=== PATIENT | female | born 1980 | race Caucasian/White ===

== ENCOUNTER 2018-05-30 09:28 | Inpatient (IN) | payer BC ==
--- NOTE | 2018-05-30 09:45 | Emergency Department Record ---
History of Present Illness - General Chief Complaint: Abdominal Pain Stated Complaint: ABD PAIN Time Seen by Provider: 05/30/18 09:34 Source: Patient - History of Present Illness Initial Comments: the patient states that she developed upper abdominal pain, left worse than right, yesterday. It worsened to 9/10 in the middle of the night last night. Over the two days she has had nausea, vomiting times 7, and diarrhea times 2. She denies seeing blood or black in her vomit or stools. She is sweaty and chilled but has not had a fever. Her appendix has been surgically removed. She is [id number] [birth year]. She takes ultram and norco daily for her thoracic back spurs, scoliosis and arthritis. She also drinks more 3-6 beers daily. - Related Data Home Medications Medication Instructions Recorded Confirmed Last Taken Citalopram Hydrobromide 40 mg PO DAILY 05/30/18 05/30/18 Unknown [Citalopram HBr] Hydrocodone/Acetaminophen 1 each PO ASDIR 05/30/18 05/30/18 05/30/18 [Hydrocodone-Acetamin 5-325 mg] Metoprolol Succinate [Toprol Xl] 25 mg PO DAILY 05/30/18 05/30/18 Unknown Tramadol HCl 50 mg PO DAILY 05/30/18 05/30/18 Unknown Allergies Allergy/AdvReac Type Severity Reaction Status Date / Time NSAIDS (Non-Steroidal Allergy RASH Verified 05/30/18 09:42 Anti-Inflamma Review of Systems Reviewed: No additional complaints except as noted below Constitutional: Reports: As per HPI. Denies: Chills, Fever, Malaise, Night sweats, Weakness, Weight change Eyes: Reports: As per HPI. Denies: Eye discharge, Eye pain, Photophobia, Vision change ENT: Reports: As per HPI. Denies: Congestion, Dental pain, Ear pain, Epistaxis , Hearing loss, Throat pain Respiratory: Reports: As per HPI. Denies: Cough, Dyspnea, Hemoptysis, Stridor, Wheezes Cardiovascular: Reports: As per HPI. Denies: Arrhythmia, Chest pain, Dyspnea on exertion, Edema, Murmurs, Orthopnea, Palpitations, Paroxysmal nocturnal dyspnea, Rheumatic Fever, Syncope Endocrine: Reports: As per HPI. Denies: Fatigue, Heat or cold intolerance, Polydipsia, Polyuria Gastrointestinal: Reports: As per HPI. Denies: Abdominal pain, Constipation, Diarrhea, Hematemesis, Hematochezia, Melena, Nausea, Vomiting Genitourinary: Reports: As per HPI. Denies: Abnormal menses, Discharge, Dyspareunia, Dysuria, Frequency, Hematuria, Incontinence, Retention, Urgency Musculoskeletal: Reports: As per HPI. Denies: Arthralgia, Back pain, Gout, Joint swelling, Myalgia, Neck pain Skin: Reports: As per HPI. Denies: Bruising, Change in color, Change in hair/ nails, Lesions, Pruritus, Rash Neurological: Reports: As per HPI. Denies: Abnormal gait, Confusion, Headache, Numbness, Paresthesias, Seizure, Tingling, Tremors, Vertigo, Weakness Psychiatric: Reports: As per HPI. Denies: Anxiety, Auditory hallucinations, Depression, Homicidal thoughts, Suicidal thoughts, Visual hallucinations Hematological/Lymphatic: Reports: As per HPI. 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 negative: Conjunctival injection, Nystagmus, Scleral icterus Pupils: Normal accommodation - ENT ENT exam: Normal exam, Mucous membranes moist, Normal external ear exam, Normal orophraynx, TM's normal bilaterally Ear exam: Normal external inspection. negative: External canal tenderness Nasal Exam: Normal inspection. negative: Discharge, Sinus tenderness Mouth exam: Normal external inspection, Tongue normal Teeth exam: Normal inspection. negative: Dental caries Throat exam: Normal inspection. negative: Tonsillar erythema, Tonsillar exudate - Neck Neck exam: Normal inspection, Full ROM. negative: Lymphadenopathy, Meningismus , Tenderness - Respiratory Respiratory exam: Normal lung sounds bilaterally. negative: Respiratory distress - Cardiovascular Cardiovascular Exam: Normal rhythm, Normal heart sounds, Tachycardia - GI/Abdominal GI/Abdominal exam: Soft, Normal bowel sounds, Tenderness (maximally tender 9/10 LUQ and epigastrum; also 6/10 RUQ tender. ) - Rectal Rectal exam: Deferred - exam: Deferred - Extremities Extremities exam: Normal inspection, Full ROM, Normal capillary refill. negative: Calf tenderness, Pedal edema, Tenderness - Back Back exam: Reports: Normal inspection, CVA tenderness (L), Full ROM. Denies: Muscle spasm, Rash noted, Tenderness - Neurological Neurological exam: Alert, CN II-XII intact, Normal gait, Oriented X3, Reflexes normal, Other (tearful). negative: Motor sensory deficit - Psychiatric Psychiatric exam: Normal affect, Normal mood - Skin Skin exam: Dry, Intact, Normal color, Warm Course - Reevaluation(s) Reevaluation #1: Patient states her nausea is resolved but her pain has not improved. She has a low K for which she is getting 20 Klor orally and 20 in her second IV of NS. CT abdomen ordered. 05/30/18 10:40 Reevaluation #2: Diaphoresis has resolved, pain has improved but not resolved after dilaudid. Drinking contrast for CT scan. 05/30/18 11:12 Reevaluation #3: results discussed with patient. All questions answered. 05/30/18 12:55 05/30/18 13:33 and patient agree for her admission. Discussed with Mellisa Cage N.P. who agrees with Observation for hydration, pain control, and social science instructor consult. Medical Decision Making - Management Options MDM Management: Additional Work-up Planned (e.g. ADM/Transfer/OP Study) ( Admission for acute pancreatitis) - Data Complexity MDM Data: Labs Ordered and/or Reviewed (Lipase 769; bili 1.5, AST 144, ALT 110) , X-Ray Ordered and/or Reviewed (Contrast Abd/Pelvis CT: Findings consistent with acute pancreatitis with fluid in the perirenal space and lesser sack; fatty infiltrates in the the liver and thickened duodenum likely secondary to pancreatitis. Per radiologist.) - Lab Data Result diagrams: 05/30/18 09:50 05/30/18 09:50 Disposition Disposition: Admit Clinical Impression: Elevated liver enzymes Acute pancreatitis Qualifiers: Pancreatitis type: alcohol induced Acute pancreatitis complication: no infection or necrosis Qualified Code(s): K85.20 - Alcohol induced acute pancreatitis without necrosis or infection Disposition: Still a Patient at [facility] Decision to Admit: Admit from ER Decision to Admit Date: 05/30/18 Decision to Admit Time: 13:02 Accepting Physician: Dr. Kumari/Mellisa Love Time Discussed w/Accepting Physician: 13:02 Condition: (1) Good Forms: Patient Portal Access Quality - Quality Measures Quality Measures: N/A - Blood Pressure Screening Does Patient Have Any of the Following: No Blood Pressure Classification: Hypertensive Reading Systolic Measurement: 138 Diastolic Measurement: 103 Screening for High Blood Pressure: < Pre-Hypertensive BP, F/U Documented > [ [id number]] Pre-Hypertensive Follow-up Interventions: Follow-up with rescreen every year.
[2018-05-30] MEDS ORDERED: ONDANSETRON HCL IV 4 MG/2 ML VIAL IV ONE (09:56)
[2018-05-30] MEDS ORDERED: 0.9 % SODIUM CHLORIDE 1,000 ML BAG IV ONE (09:56)
[2018-05-30] MEDS ORDERED: FAMOTIDINE IV 20 MG/2 ML VIAL IVP ONE (09:57)
[2018-05-30] MEDS ORDERED: HYOSCYAMINE SULFATE ODT 0.125 MG TAB.SUBL SL ONE (10:03)
[2018-05-30 10:06] LABS: BASO % 0.2 % (0-6); EOS % 0.2 % (0-6); GRAN % 78.6 % (47-80); HEMATOCRIT 42.2 % (35.0-47.0); LYMPH % 17.4 % (16-45); MEAN CORPUSCULAR HEMOGLOBIN 34.5 pg (27-33); MEAN CORPUSCULAR HGB CONC 35.5 g/dl (32-36); MEAN PLATELET VOLUME 9.7 fl (7.4-10.4); MONO % 3.6 % (0-9); PLATELET COUNT 174 K/uL (130-400); RED BLOOD COUNT 4.35 M/uL (3.80-5.40); RED CELL DISTRIBUTION WIDTH 11.6 % (11.5-14.5); URINE APPEARANCE CLEAR; URINE BILIRUBIN NEGATIVE (NEGATIVE); URINE BLOOD NEGATIVE (NEGATIVE); URINE COLOR ORANGE; URINE GLUCOSE (UA) NEGATIVE (NEGATIVE); URINE KETONE 15 mg/dL (NEGATIVE); URINE LEUKOCYTE ESTERASE NEGATIVE (NEGATIVE); URINE NITRITE POSITIVE (NEGATIVE); URINE PROTEIN NEGATIVE (NEGATIVE); URINE UROBILINOGEN 0.2 E.U./dL (0.20 - 1.00); WHITE BLOOD COUNT W/O DIFF 9.2 K/uL (4.2-12.2)
[2018-05-30 10:14] LABS: BLOOD UREA NITROGEN 16 mg/dL (6-20); CREATININE 0.6 mg/dL (0.5-0.9); EST GLOMERULAR FILTRATION RATE > 60 mL/min
[2018-05-30 10:15] LABS: TOTAL PROTEIN 7.1 g/dL (6.6-8.7)
[2018-05-30 10:17] LABS: GLUCOSE,RANDOM 139 mg/dL (74-109)
[2018-05-30 10:20] LABS: ALB/GLOB RATIO 1.4 (1.1-1.8); ALBUMIN 4.2 g/dL (4.0-5.0); ALKALINE PHOSPHATASE 93 U/L (35-104); ALT/SGPT 110 U/L (<33); AST/SGOT 144 U/L (10.0-35.0)
[2018-05-30 10:23] LABS: URINE RBC 0 - 2 (NONE SEEN); URINE WBC 0 - 2 (0-2/hpf)
[2018-05-30 10:24] LABS: URINE AMORPHOUS SEDIMENT 2+
[2018-05-30 10:28] LABS: HCG,QUALITATIVE URINE NEGATIVE (NEGATIVE)
[2018-05-30] MEDS ORDERED: POTASSIUM CHLORIDE 20 MEQ TABLET PO ONE (10:36)
[2018-05-30] MEDS ORDERED: POTASSIUM CHL 20MEQ IN 1L NS 20 MEQ in 0.9 % SODIUM CHLORIDE 1000ML 1 BAG IV ONE ×2 (10:37)
[2018-05-30] MEDS ORDERED: LORAZEPAM 2 MG/ML VIAL IV ONE (10:39)
[2018-05-30] MEDS ORDERED: HYDROMORPHONE HCL 2 MG/ML VIAL IVP ONE (10:40)
[2018-05-30 10:44] LABS: LIPASE 769 U/L (13-60)
[2018-05-30] MEDS ORDERED: POTASSIUM CHLORIDE/D5-0.9%NACL 20 MEQ/1,000 ML BAG IV ONE (14:43)
[2018-05-30] MEDS ORDERED: 0.9 % SODIUM CHLORIDE 1000ML 1,000 ML IV ONE (14:43)
[2018-05-30] MEDS ORDERED: ONDANSETRON HCL IV 4 MG/2 ML VIAL IVP PRN (14:43)
[2018-05-30] MEDS ORDERED: MORPHINE SULFATE 10 MG/ML VIAL IVP PRN (15:27)
[2018-05-30] MEDS ORDERED: LORAZEPAM 2 MG/ML VIAL IV PRN ×4 (15:37→23:01)
[2018-05-30] MEDS: METOPROLOL 25 MG PO SCH ×2 (18:05→22:02)
[2018-05-30] MEDS: MORPHINE SULFATE 10 MG/ML VIAL IVP SCH ×2 (18:08→20:26)
[2018-05-30] MEDS ORDERED: POTASSIUM CHL 20MEQ IN 1L NS 20 MEQ/1,000 ML BAG IV SCH (19:00)
[2018-05-30 20:05] LABS: ALB/GLOB RATIO 1.4 (1.1-1.8); ALBUMIN 3.7 g/dL (4.0-5.0); ALKALINE PHOSPHATASE 77 U/L (35-104); ALT/SGPT 83 U/L (<33); AST/SGOT 97 U/L (10.0-35.0); BLOOD UREA NITROGEN 11 mg/dL (6-20); CREATININE 0.6 mg/dL (0.5-0.9); EST GLOMERULAR FILTRATION RATE > 60 mL/min; GLUCOSE,RANDOM 117 mg/dL (74-109); TOTAL PROTEIN 6.4 g/dL (6.6-8.7)
[2018-05-30] MEDS ORDERED: PATIENT OWN MED: CITALOPRAM 40 MG PO SCH (22:00)
[2018-05-30] MEDS: 0.9 % SODIUM CHLORIDE 1000ML 1,000 ML IV SCH (22:54)
[2018-05-31] MEDS ORDERED: DIAZEPAM (VALIUM) 5MG/ML **10ML VIAL IVP ONE (00:41)
[2018-05-31] MEDS ORDERED: HALOPERIDOL LACTATE 5 MG/ML VIAL IM ONE (01:40)
[2018-05-31 06:46] LABS: HEMOGLOBIN 12.6 gm/dl (11.6-16.0); MEAN CELL VOLUME 98.7 fl (81-97); MEAN CORPUSCULAR HEMOGLOBIN 33.6 pg (27-33); MEAN CORPUSCULAR HGB CONC 34.1 g/dl (32-36); MEAN PLATELET VOLUME 10.1 fl (7.4-10.4); PLATELET COUNT 118 K/uL (130-400); RED BLOOD COUNT 3.75 M/uL (3.80-5.40); RED CELL DISTRIBUTION WIDTH 11.8 % (11.5-14.5); WHITE BLOOD COUNT W/O DIFF 5.1 K/uL (4.2-12.2)
[2018-05-31 07:06] LABS: ALB/GLOB RATIO 1.3 (1.1-1.8); ALKALINE PHOSPHATASE 62 U/L (35-104); ALT/SGPT 57 U/L (<33); AST/SGOT 66 U/L (10.0-35.0); BLOOD UREA NITROGEN 11 mg/dL (6-20); CREATININE 0.5 mg/dL (0.5-0.9); EST GLOMERULAR FILTRATION RATE > 60 mL/min; GLUCOSE,RANDOM 95 mg/dL (74-109); TOTAL PROTEIN 5.3 g/dL (6.6-8.7)
[2018-05-31 07:16] LABS: PLATELET ESTIMATE NORMAL (NORMAL)
[2018-05-31] MEDS: 0.9 % SODIUM CHLORIDE 1000ML 1,000 ML IV SCH ×2 (07:33→17:17)
[2018-05-31] MEDS: MORPHINE SULFATE 10 MG/ML VIAL IVP PRN ×3 (07:47→13:36)
--- NOTE | 2018-05-31 09:56 | History & Physical ---
History of Present Illness - Date of Service Date of Service for History & Physical: 05/31/18 - History of Present Illness Admitting Diagnosis: Acute pancreatitis; elevated LFT's; alcohol abuse History of Present Illness: 38 year old female presents to ED for diffuse abdominal pain, nausea, vomiting, and diarrhea since Tuesday. Patient reports that the pain has been gradually worsening, and is now a 9/10. Patient denies any blood in her stool or emesis. Patient is unsure if she has had fevers, has been chilled and diaphoretic several times over the past few days. Reports progressive weakness as well. Denies shortness of breath, chest pain, dizziness, or syncope. Patient's past medical history includes thoracic back spurs, scoliosis, arthritis, depression, SVT, and appendectomy. Patient currently takes [place] 5/ 325mg TID, Ultram 50mg TID, Metoprolol, and Citalopram. Patient also reports drinking 3-6 beers daily for pain control. PCP: Basilio ED Course: VS: HR 98, BP 138/103, RR 18, Pulse ox 95% RA, afebrile K 3.0, received 20mEq K orally and 20mEq IVPB Bili 1.5, AST 144, ALT 110, Lipase 769 Dilaudid IVP for pain ABD CT: acute pancreatitis, fatty infiltrates in liver, no gallstones, no hepatic mass, nonspecific free fluid in pelvis, thickening of duodenum likely due to acute pancreatitis Tremorous, received 0.5mg Ativan IVP 2 05/31/18: Patient A&O x 4. Resting comfortably on bed, appears quite anxious at this time. Patient has been asking several times throughout the night when she is able to go. Patient has been placed on CIWA protocol and has been receiving several doses of benzodiazepines throughout the night. Patient became agitated, aggressive, confused, weak, and diaphoretic throughout the night. This morning this has resolved, patient continues to ask when she can leave. Continues to have some cloudy sensorium. Denies nausea at this time, will advance diet to clear liquids. Continue with NS @ 125ml/hr. Patient continues to have diffuse abdominal pain upon palpation, receiving Morphine IVP prn. Travel Screening - Travel/Exposure Within Last 30 Days Have you traveled within the last 30 days?: Yes Location Detail:: [place] - Travel/Exposure Within Last Year Have you traveled outside the [place] in the last year?: No - Additonal Travel Details Have you been exposed to anyone with a communicable illness?: No - Travel Symptoms Symptom Screening: Diarrhea, Vomiting Review of Systems Reviewed: No additional complaints except as noted below Constitutional: Reports: As per HPI, Chills. Denies: Fever, Malaise, Night sweats, Weakness, Weight change Eyes: Reports: As per HPI. Denies: Eye discharge, Eye pain, Photophobia, Vision change ENT: Reports: As per HPI. Denies: Congestion, Dental pain, Ear pain, Epistaxis , Hearing loss, Throat pain Respiratory: Reports: As per HPI. Denies: Cough, Dyspnea, Hemoptysis, Stridor, Wheezes Cardiovascular: Reports: As per HPI. Denies: Arrhythmia, Chest pain, Dyspnea on exertion, Edema, Murmurs, Orthopnea, Palpitations, Paroxysmal nocturnal dyspnea, Rheumatic Fever, Syncope Endocrine: Reports: As per HPI. Denies: Fatigue, Heat or cold intolerance, Polydipsia, Polyuria Gastrointestinal: Reports: As per HPI, Abdominal pain, Diarrhea, Nausea, Vomiting. Denies: Constipation, Hematemesis, Hematochezia, Melena Genitourinary: Reports: As per HPI. Denies: Abnormal menses, Discharge, Dyspareunia, Dysuria, Frequency, Hematuria, Incontinence, Retention, Urgency Musculoskeletal: Reports: As per HPI, Back pain. Denies: Arthralgia, Gout, Joint swelling, Myalgia, Neck pain Skin: Reports: As per HPI. Denies: Bruising, Change in color, Change in hair/ nails, Lesions, Pruritus, Rash Neurological: Reports: As per HPI, Weakness. Denies: Abnormal gait, Confusion, Headache, Numbness, Paresthesias, Seizure, Tingling, Tremors, Vertigo Psychiatric: Reports: As per HPI. Denies: Anxiety, Auditory hallucinations, Depression, Homicidal thoughts, Suicidal thoughts, Visual hallucinations Hematological/Lymphatic: Reports: As per HPI. 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: Reports: week(s) - RESPIRATORY Hx Respiratory Disorders: No - CARDIOVASCULAR Hx Cardio Disorders: Yes Hx Irregular Heartbeat: Yes (SVT) - NEURO Hx Neuro Disorders: No - GI Hx GI Disorders: No - Hx Genitourinary Disorders: No - ENDOCRINE Hx Endocrine Disorders: No - MUSCULOSKELETAL Hx Musculoskeletal Disorders: Yes Hx Arthritis: Yes Comment:: scoliosis, bone spurs - PSYCH Hx Psych Problems: Yes Hx Depression: Yes - HEMATOLOGY/ONCOLOGY Hx Hematology/Oncology Disorders: No Family Medical History Any Significant Family History?: Yes Hx Cancer: Father, Grandparents H&P Meds/Allergies - Allergies Allergies: Allergies Allergy/AdvReac Type Severity Reaction Status Date / Time NSAIDS (Non-Steroidal Allergy RASH Verified 05/30/18 09:42 Anti-Inflamma - Home Medications Home Medications Medication Instructions Recorded Confirmed Last Taken Citalopram Hydrobromide 40 mg PO QHS 05/30/18 05/31/18 Unknown [Citalopram HBr] Hydrocodone/Acetaminophen 1 each PO Q4H PRN 05/30/18 05/31/18 05/30/18 [Hydrocodone-Acetamin 5-325 mg] Metoprolol Succinate [Toprol Xl] 25 mg PO QHS 05/30/18 05/31/18 Unknown Tramadol HCl 50 mg PO BID PRN 05/30/18 05/31/18 Unknown - Active Medications Active Medications: Current Medications Sodium Chloride () 1,000 mls @ 125 mls/hr IV .Q8H [facility] Last Admin: 05/31/18 07:33 Dose: 125 mls/hr Lorazepam (Ativan) 1 mg IV Q2HR PRN PRN Reason: ALCOHOL WITHDRAWAL Lorazepam (Ativan) 2 mg IV Q2HR PRN PRN Reason: ALCOHOL WITHDRAWAL Morphine Sulfate (Morphine Sulfate) 4 mg IVP Q2H PRN PRN Reason: ABDOMINAL PAIN Last Admin: 05/31/18 07:47 Dose: 4 mg Ondansetron HCl (Zofran) 4 mg IVP Q4H PRN PRN Reason: NAUSEA Patient Own Med: (Citalopram 40 Mg) 1 each PO QHS [facility] Last Admin: 05/30/18 22:56 Dose: 1 each Patient Own Med: (Metoprolol Xl 25 Mg) 1 each PO QHS [facility] Last Admin: 05/30/18 22:02 Dose: Not Given Physical Exam - Vital Signs Vital Signs: Vital Signs - Last 24 Hrs Temp Pulse Pulse Resp BP BP Pulse Ox 05/31/18 07:58 80 16 05/31/18 06:00 98.1 F 80 16 112/46 100 05/30/18 22:00 100.6 F H 119 H 17 125/75 99 05/30/18 19:30 110 H 20 05/30/18 14:43 97.7 F 97 H 18 131/92 99 05/30/18 11:42 89 20 114/81 100 05/30/18 09:36 98.0 F 95 H 18 138/103 100 - General General Appearance: Alert, Oriented x3, Mild distress - Head Head exam: Normal inspection - Eye Eye exam: Normal appearance, PERRL, EOMI. negative: Conjunctival injection, Nystagmus, Scleral icterus Pupils: Normal accommodation - ENT ENT exam: Normal exam, Mucous membranes moist, Normal external ear exam, Normal orophraynx Ear exam: Normal external inspection. negative: External canal tenderness Nasal Exam: Normal inspection. negative: Discharge, Sinus tenderness Mouth exam: Normal external inspection, Tongue normal Teeth exam: Normal inspection. negative: Dental caries Throat exam: Normal inspection. negative: Tonsillar erythema, Tonsillar exudate - Neck Neck exam: Normal inspection, Full ROM. negative: Lymphadenopathy, Meningismus , Tenderness - Respiratory Respiratory exam: Normal lung sounds bilaterally. negative: Respiratory distress - Cardiovascular Cardiovascular Exam: Normal rhythm, Normal heart sounds, Tachycardia Peripheral Pulses: 2+: Radial (R), Radial (L), Dorsalis Pedis (R), Dorsalis Pedis (L) - GI/Abdominal GI/Abdominal exam: Soft, Normal bowel sounds, Tenderness (7/10 abdominal pain, tender to palpation) - Rectal Rectal exam: Deferred - exam: Deferred - Extremities Extremities exam: Normal inspection, Full ROM, Normal capillary refill. negative: Calf tenderness, Pedal edema, Tenderness - Back Back exam: Reports: Normal inspection, CVA tenderness (L), Full ROM. Denies: Muscle spasm, Rash noted, Tenderness - Neurological Neurological exam: Alert, Oriented X3, Other (weakness, tremorous). negative: Motor sensory deficit, Normal gait - Psychiatric Psychiatric exam: Anxious - Skin Skin exam: Dry, Intact, Normal color, Warm Results - Labs Result Diagrams: 05/31/18 06:21 05/31/18 06:21 Labs Last 24 Hours: Laboratory Results - last 24 hr 05/30/18 05/30/18 05/30/18 09:50 09:50 09:50 WBC 9.2 RBC 4.35 Hgb 15.0 Hct 42.2 MCV 97.0 MCH 34.5 H MCHC 35.5 RDW 11.6 Plt Count 174 MPV 9.7 Gran % 78.6 Neutrophils % Band Neutrophils % Lymphocytes % 17.4 Monocytes % 3.6 Eosinophils % 0.2 Basophils % 0.2 Lymphocytes Monocytes Platelet Estimate RBC Morphology Sodium 135 L Potassium 3.0 L Chloride 92 L Carbon Dioxide 24.0 Anion Gap 19.0 H BUN 16 Creatinine 0.6 Estimated GFR > 60 Random Glucose 139 H Calcium 8.9 Total Bilirubin 1.50 H AST 144 H ALT 110 H Alkaline Phosphatase 93 Total Protein 7.1 Albumin 4.2 Globulin 2.9 Albumin/Globulin Ratio 1.4 Lipase 769 H Urine Color [place] H Urine Appearance Clear Urine pH 7.0 Ur Specific [place] 1.025 Urine Protein Negative Urine Glucose (UA) Negative Urine Ketones 15 mg/dl H Urine Blood Negative Urine Nitrite Positive H Urine Bilirubin Negative Urine Urobilinogen 0.2 Ur Leukocyte Esterase Negative Urine RBC 0 - 2 Urine WBC 0 - 2 Ur Epithelial Cells 7 - 10 Amorphous Sediment 2+ Urine Bacteria None Urine HCG, Qual Negative 05/30/18 05/31/18 05/31/18 19:40 06:21 06:21 WBC 5.1 RBC 3.75 L Hgb 12.6 Hct 37.0 MCV 98.7 H MCH 33.6 H MCHC 34.1 RDW 11.8 Plt Count 118 L MPV 10.1 Gran % Neutrophils % 69.0 Band Neutrophils % 7.0 H Lymphocytes % Monocytes % Eosinophils % Not Reportable Basophils % Not Reportable Lymphocytes 19.0 Monocytes 5.0 Platelet Estimate Normal RBC Morphology Normal Sodium 134 L 134 L Potassium 4.0 3.6 Chloride 98 101 Carbon Dioxide 22.0 20.0 L Anion Gap 14.0 13.0 BUN 11 11 Creatinine 0.6 0.5 Estimated GFR > 60 > 60 Random Glucose 117 H 95 Calcium 7.7 L 7.3 L Total Bilirubin 2.10 H 1.40 H AST 97 H 66 H ALT 83 H 57 H Alkaline Phosphatase 77 62 Total Protein 6.4 L 5.3 L Albumin 3.7 L 3.0 L Globulin 2.7 2.3 Albumin/Globulin Ratio 1.4 1.3 Lipase Urine Color Urine Appearance Urine pH Ur Specific [place] Urine Protein Urine Glucose (UA) Urine Ketones Urine Blood Urine Nitrite Urine Bilirubin Urine Urobilinogen Ur Leukocyte Esterase Urine RBC Urine WBC Ur Epithelial Cells Amorphous Sediment Urine Bacteria Urine HCG, Qual VTE H&P Assessment - Risk for VTE Risk for VTE: Yes Risk Level: Moderate Risk Assessment Date: 05/31/18 Risk Assessment Time: 09:00 VTE Orders Placed or Will Be Placed: Yes Plan - Detailed Diagnosis and Plan (1) Acute pancreatitis Current Visit: Yes Status: Acute Qualifiers: Pancreatitis type: alcohol induced Acute pancreatitis complication: no infection or necrosis Qualified Code(s): K85.20 - Alcohol induced acute pancreatitis without necrosis or infection Base Code: K85.90 - ACUTE PANCREATITIS WITHOUT NECROSIS OR INFECTION, UNSP Comment: 05/31/18: Abd/pelvis CT in ED indicates acute pancreatitis with diffuse fatty liver infiltrates. Lipase 769, patient has significant medical history of alcohol abuse. -Morphine 4mg IVP q4h prn pain -Zofran 4mg prn nausea -0.9% NS @125ml/hr -Advance to clear liquid diet as tolerated -Will continue to monitor CMP, pain, and hydration status (2) Alcohol withdrawal Current Visit: Yes Status: Acute Base Code: F10.239 - ALCOHOL DEPENDENCE WITH WITHDRAWAL, UNSPECIFIED Comment: 05/31/18: Patient admits to drinking 3- 6 beers daily for chronic pain management. Denies having withdraw symptoms in the past when she has stopped drinking. Last drink Tuesday, 05/27. -CIWA scale ordered -Ativan 1-2mg IVP prn q1-2h pending CIWA score -Patient continues to be tremorous, cloudy sensorium, restless, and impulsive. Will continue to monitor, side rails up for safety, made aware of patient's current condition. -judo instructor -Counseled patient on alcohol cessation, declines any additional older adult social work specialist at this time. (3) Elevated liver enzymes Current Visit: Yes Status: Acute Base Code: R74.8 - ABNORMAL LEVELS OF OTHER SERUM ENZYMES Comment: 05/31/18: AST 144, ALT 110, Bili 1.5 upon admission -Repeat liver enzymes AST 66, ALT 57, Bili 1.4 -Likely secondary to alcohol use -Will continue to monitor -NS @ 125ml/hr (4) DVT prophylaxis Current Visit: Yes Status: Acute Base Code: [id number] - Comment: 05/31/18: Moderate risk due to hospitalization and decreased mobility -Lovenox 40mg SQ daily (5) Full code status Current Visit: Yes Status: Acute Base Code: Z78.9 - OTHER SPECIFIED HEALTH STATUS Comment: 05/31/18: Patient is a full code this admission
--- NOTE | 2018-05-31 11:04 | Inpatient Certification ---
Inpatient Certification Admit to inpatient care: Based on my medical assessment, after consideration of patient's risk factors (age, co-morbidities and patient presenting symptoms and acuity), I expect that this patient will remain in the hospital greater than or equal to two midnights and that the services needed warrant inpatient care because: Patient Risk Factors: [acute pancreatitis, acute alcohol withdraw] Estimated length of stay: The patient may reasonably be expected to be discharged or transferred to a hospital within 48-96 hours after admission to [facility]. Services needed: [IV fluids, careful monitoring for alcohol withdraw with IV benzodiazepines, cardiac monitoring, pain control, serial labs] Post hospital care (if known): [] I certify that my determination is in accordance with my understanding of Medicare requirements for reasonable and necessary inpatient services. 05/31/18 11:03
--- NOTE | 2018-05-31 16:46 | Discharge Summary ---
Providers Discharge Summary Date: 05/31/18 Date of admission: 05/30/18 19:37 Expected Date of Discharge: 05/31/18 Attending physician: JENNI BARTH Primary care physician: HERBIE LANDRUM D.O. Consults: Consult Orders 05/30/18 14:43 Consult - Case Management Now Comment: Reason For Exam: pancreatitis due to ETOH intake; 2 yrold @home Physical Exam - Vital Signs Vital Signs: Vital Signs - Last 24 Hrs Temp Pulse Resp BP BP Pulse Ox 05/31/18 14:00 99.3 F 112 H 16 139/85 98 05/31/18 09:34 98.1 F 112/46 05/31/18 07:58 80 16 05/31/18 06:00 98.1 F 80 16 112/46 100 05/30/18 22:00 100.6 F H 119 H 17 125/75 99 05/30/18 19:30 110 H 20 - General General Appearance: Alert, Oriented x3, Cooperative, No acute distress - Head Head exam: Normal inspection - Eye Eye exam: Normal appearance, PERRL, EOMI. negative: Conjunctival injection, Nystagmus, Scleral icterus Pupils: Normal accommodation - ENT ENT exam: Normal exam, Mucous membranes moist Ear exam: negative: External canal tenderness Nasal Exam: negative: Discharge, Sinus tenderness Mouth exam: Normal external inspection, Tongue normal Teeth exam: Normal inspection. negative: Dental caries Throat exam: Normal inspection. negative: Tonsillar erythema, Tonsillar exudate - Neck Neck exam: Normal inspection, Full ROM. negative: Lymphadenopathy, Meningismus , Tenderness - Respiratory Respiratory exam: Normal lung sounds bilaterally. negative: Respiratory distress - Cardiovascular Cardiovascular Exam: Regular rate, Normal rhythm, Normal heart sounds Peripheral Pulses: 2+: Radial (R), Radial (L), Dorsalis Pedis (R), Dorsalis Pedis (L) - GI/Abdominal GI/Abdominal exam: Soft, Normal bowel sounds, Tenderness (4/10 abdominal pain, tender to palpation) - Rectal Rectal exam: Deferred - exam: Deferred - Extremities Extremities exam: Normal inspection, Full ROM, Normal capillary refill. negative: Calf tenderness, Pedal edema, Tenderness - Back Back exam: Reports: Normal inspection. Denies: Muscle spasm, Rash noted, Tenderness - Neurological Neurological exam: Alert, Oriented X3, Other. negative: Motor sensory deficit, Normal gait - Psychiatric Psychiatric exam: Anxious - Skin Skin exam: Dry, Intact, Normal color, Warm Hospitalization - Hospitalization Admission Diagnosis: Acute pancreatitis; elevated LFT's; alcohol abuse - Problem List/Discharge Diagnosis (1) Acute pancreatitis Status: Acute Discharge Diagnosis: Pancreatitis type: alcohol induced Acute pancreatitis complication: no infection or necrosis Qualified Code(s): K85.20 - Alcohol induced acute pancreatitis without necrosis or infection Base Code: K85.90 - ACUTE PANCREATITIS WITHOUT NECROSIS OR INFECTION, UNSP Comment: 05/31/18: Abd/pelvis CT in ED indicates acute pancreatitis with diffuse fatty liver infiltrates. Lipase 769, patient has significant medical history of alcohol abuse. -Morphine 4mg IVP q4h prn pain. Currently pain 4/10 -Zofran 4mg prn nausea -0.9% NS @125ml/hr -Tolerated clear liquids, have advanced to full bland diet and patient tolerating well (2) Alcohol withdrawal Status: Acute Base Code: F10.239 - ALCOHOL DEPENDENCE WITH WITHDRAWAL, UNSPECIFIED Comment: 05/31/18: Patient admits to drinking 3-6 beers daily for chronic pain management. Denies having withdraw symptoms in the past when she has stopped drinking. Last drink Tuesday, 05/27. 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 (3) Elevated liver enzymes Status: Acute Base Code: R74.8 - ABNORMAL LEVELS OF OTHER SERUM ENZYMES Comment: 05/31/18: AST 144, ALT 110, Bili 1.5 upon admission -Repeat liver enzymes AST 66, ALT 57, Bili 1.4 -Likely secondary to alcohol use -Will continue to monitor -NS @ 125ml/hr (4) DVT prophylaxis Status: Acute Base Code: [id number] - Comment: 05/31/18: Moderate risk due to hospitalization and decreased mobility -Lovenox 40mg SQ daily -No prophylaxis needed upon dc as patient will resume normal activity (5) Full code status Status: Acute Base Code: Z78.9 - OTHER SPECIFIED HEALTH STATUS Comment: : Patient is a full code this admission - Hospitalization Course Disposition: Home, Self-Care Hospital Course: 38 year old female presents to ED for diffuse abdominal pain, nausea, vomiting, and diarrhea since Tuesday. Patient reports that the pain has been gradually worsening, and is now a 9/10. Patient denies any blood in her stool or emesis. Patient is unsure if she has had fevers, has been chilled and diaphoretic several times over the past few days. Reports progressive weakness as well. Denies shortness of breath, chest pain, dizziness, or syncope. Patient's past medical history includes thoracic back spurs, scoliosis, arthritis, depression, SVT, and appendectomy. Patient currently takes [place] 5/ 325mg TID, Ultram 50mg TID, Metoprolol, and Citalopram. Patient also reports drinking 3-6 beers daily for pain control. PCP: [facility] ED Course: VS: HR 98, BP 138/103, RR 18, Pulse ox 95% RA, afebrile K 3.0, received 20mEq K orally and 20mEq IVPB Bili 1.5, AST 144, ALT 110, Lipase 769 Dilaudid IVP for pain ABD CT: acute pancreatitis, fatty infiltrates in liver, no gallstones, no hepatic mass, nonspecific free fluid in pelvis, thickening of duodenum likely due to acute pancreatitis Tremorous, received 0.5mg Ativan IVP 2 05/31/18: Patient A&O x 4. Resting comfortably on bed, appears quite anxious at this time. Patient has been asking several times throughout the night when she is able to go. Patient has been placed on CIWA protocol and has been receiving several doses of benzodiazepines throughout the night. Patient became agitated, aggressive, confused, weak, and diaphoretic throughout the night. This morning this has resolved, patient continues to ask when she can leave. Continues to have some cloudy sensorium. Denies nausea at this time, will advance diet to clear liquids. Continue with NS @ 125ml/hr. Patient continues to have diffuse abdominal pain upon palpation, receiving Morphine IVP prn. UPDATE: Abdominal pain improving, now 4/10. Patient has been tolerating advancing her diet, no nausea, vomiting, or diarrhea today. CIWA scores have been improving, with results 0-5, VS WNL. Patient encouraged to stop drinking upon discharge, offered additional resources, refused at this time. Patient to follow-up with PCP in 2 weeks. Procedures: Imaging and X-Rays 05/30/18 10:38 ABDOMEN/PELVIS W CONTRAST [CT] Stat Abnormal Labs: Abnormal Lab Results 05/30/18 05/30/18 05/30/18 Range/Units 09:50 09:50 09:50 RBC (3.80-5.40) M/uL MCV (81-97) fl MCH 34.5 H (27-33) pg Plt Count (130-400) K/uL Band Neutrophils % (0-5) % Sodium 135 L (136-145) mmol/L Potassium 3.0 L (3.4-4.5) mmol/L Chloride 92 L (98-107) mmol/L Carbon Dioxide (22-29) mmol/L Anion Gap 19.0 H (7-16) Random Glucose 139 H (74-109) mg/dL Calcium (8.6-10.0) mg/dL Total Bilirubin 1.50 H (0.2-1.0) mg/dL AST 144 H (10.0-35.0) U/L ALT 110 H (<33) U/L Total Protein (6.6-8.7) g/dL Albumin (4.0-5.0) g/dL Lipase 769 H (13-60) U/L Urine Color Trigg H Urine Ketones 15 mg/dl H (NEGATIVE) Urine Nitrite Positive H (NEGATIVE) 05/30/18 05/31/18 05/31/18 Range/Units 19:40 06:21 06:21 RBC 3.75 L (3.80-5.40) M/uL MCV 98.7 H (81-97) fl MCH 33.6 H (27-33) pg Plt Count 118 L (130-400) K/uL Band Neutrophils % 7.0 H (0-5) % Sodium 134 L 134 L (136-145) mmol/L Potassium (3.4-4.5) mmol/L Chloride (98-107) mmol/L Carbon Dioxide 20.0 L (22-29) mmol/L Anion Gap (7-16) Random Glucose 117 H (74-109) mg/dL Calcium 7.7 L 7.3 L (8.6-10.0) mg/dL Total Bilirubin 2.10 H 1.40 H (0.2-1.0) mg/dL AST 97 H 66 H (10.0-35.0) U/L ALT 83 H 57 H (<33) U/L Total Protein 6.4 L 5.3 L (6.6-8.7) g/dL Albumin 3.7 L 3.0 L (4.0-5.0) g/dL Lipase (13-60) U/L Urine Color Urine Ketones (NEGATIVE) Urine Nitrite (NEGATIVE) Condition at Discharge: (2) Stable VTE Discharge VTE Reason For No Overlap Therapy: Not Indicated Discharge Medications - Discharge Medications Home Medications: Ambulatory Orders Citalopram Hydrobromide [Citalopram HBr] 40 mg PO QHS 05/30/18 [Last Taken Unknown] Hydrocodone/Acetaminophen [Hydrocodone-Acetamin 5-325 mg] 1 each PO Q4H PRN [Last Taken 05/30/18] Metoprolol Succinate [Toprol Xl] 25 mg PO QHS 05/30/18 [Last Taken Unknown] Tramadol HCl 50 mg PO BID PRN 05/30/18 [Last Taken Unknown] Discharge Plan - Discharge Instructions Activity at Discharge: Increase Activity as Tolerated Diet at Discharge: Advance to Usual Diet Instructions: Pancreatitis (DC), Abuse of Alcohol (DC) Additional Instructions: -Slowly advance your diet -Stop drinking alcohol, as this can further exacerbate your pancreatitis -Follow-up with your PCP in 2 weeks Quality Measures - Quality Measures Quality Measures: Documentation of Current Medications in Medical Record, Screening for High Blood Pressure and F/U Documented - Current Medications Quality Measure: Measure #130: Documentation of Current Medications Documentation of Current Medications: <Current Medications Documented/Reviewed> [G8427] - Blood Pressure Screening Quality Measure: Screening for High Blood Pressure and Follow-Up Documented Does Patient Have Any of the Following: No Blood Pressure Classification: Normal BP Reading Systolic Measurement: 112 Diastolic Measurement: 46 Screening for High Blood Pressure: < Normal BP, F/U Not Required > [G8783] - Elder Abuse Suspicion Index EASI Reference Information: Zhang DANIEL, [place] C, Loulou D, Vitor Mendez.Development and validation of a tool to assist physicians identification of elder abuse: The Elder Abuse Suspicion Index (EASI ). Journal of Elder Abuse and Neglect, 2008; 20 (3): 276-300.
[2018-06-01] MEDS ORDERED: ENOXAPARIN 40 MG/0.4 ML SYR SQ SCH (10:00)
--- NOTE | 2018-06-01 10:44 | CT SCAN REPORT ---
EXAM: EMERGENCY CT OF THE ABDOMEN AND PELVIS HISTORY: LEFT UPPER QUADRANT AND EPIGASTRIC ABDOMINAL PAIN. ELEVATED LIPASE. POSTOP APPENDECTOMY. TECHNIQUE: Axial CT scan of the abdomen and pelvis was performed following both oral and IV contrast administration. Please see the medical record for contrast specifics. Comparison: None. FINDINGS: No calcified gallstones are seen within the gallbladder. There is diffuse fatty infiltration of the liver with no definite focal hepatic mass evident. There is blurring of the borders of the pancreas and there is prominent peripancreatic fluid density in the anterior pararenal space. Findings likely represent acute pancreatitis. There is some fluid in the region of the lesser sac as well. A definite discreet pseudocyst is not seen at this point, but follow-up CT may be useful to reassess. Much of the duodenal sweep has a slightly thick walled appearance, but no apparent obstruction through the duodenum with oral contrast well into the distal small bowel and proximal colon. No definite adrenal, splenic, or renal mass identified. There is moderate free fluid in the pelvis in particular which is nonspecific. The appendix is not identified consistent with the surgical history. The terminal ileum has a somewhat thick walled appearance as well which is nonspecific. This may just reflect incomplete distention. No free intraperitoneal air identified. IMPRESSION: 1. POSTOP APPENDECTOMY. 2. FINDINGS LIKELY REPRESENTING ACUTE PANCREATITIS WITH SOME FLUID IN THE ANTERIOR PARARENAL SPACE WELL IN THE LESSER SAC. MODERATE FREE FLUID IN THE PELVIS WELL. 3. DIFFUSE THICK WALLED APPEARANCE OF THE DUODENUM IS PROBABLY SECONDARY TO THE PRESUMED PANCREATITIS. SOMEWHAT THICK WALLED APPEARANCE OF THE TERMINAL ILEUM IS NONSPECIFIC AND MAY JUST BE DUE TO LACK OF DISTENTION. 4. DIFFUSE FATTY INFILTRATION OF THE LIVER. JOB NUMBER: [id number] [facility]
== END 2018-05-31 17:05 | disposition home or self-care (01) | DRG 439 ==
LOC: ER 09:28 → UNDOADMOB 14:13 → MEDSURG 14:13 → OBSVTOIN 19:37 → MEDSURG 19:37
PROVIDERS: ADMIT Internal Medicine; ATTEND Internal Medicine
DX: K85.20 Alcohol induced acute pancreatitis without necrosis or infection (principal); I47.1 Supraventricular tachycardia; F10.239 Alcohol dependence with withdrawal, unspecified; R79.89 Other specified abnormal findings of blood chemistry; R19.7 Diarrhea, unspecified; M19.90 Unspecified osteoarthritis, unspecified site; M41.9 Scoliosis, unspecified
CPT/HCPCS: 74177; 80053; 81001; 81025; 83690; 85025; 85027; 96374; 96375; 99223; 99285; J1630; J2270; J2405; J3360; J3490; J7030